=== PATIENT | female | born 1960 | race Caucasian/White ===

== ENCOUNTER 2025-07-16 09:52 | Outpatient (AMB) | payer MEDICARE, MEDICAID, SELFPAY ==
--- NOTE | 2025-07-16 09:55 | MHC.PC.OV ---
Vital Signs 07/16/25 10:06 Height 5 ft 6 in Weight 165 lb 2 oz BMI 26.6 BP 125/78 Blood Pressure Location Lt brachial Position Sitting Respiration 12 Pulse 82 Pulse Source Pulse Oximeter Temp 97.1 F Temp Source Oral Pulse Oximetry (%) 99 Oxygen Delivery Method Room Air Intake Visit Reasons: Hypertension med refill Intake Note: New patient to [facility] Grocery Associate Required: No Allergies ketorolac (From Toradol) Allergy (Severe, Verified 07/16/25 10:02) Anaphylaxis Penicillin Allergy (Unknown, Uncoded 07/16/25 10:02) Hives Medication List - Last Reviewed 07/16/25 by Dennise Lopez MA amlodipine 5 mg PO DAILY clonazepam mg PO clonidine HCl 0.2 mg PO BEDTIME lamotrigine 75 mg PO BEDTIME methadone 15 mg PO DAILY sertraline 200 mg PO QAM Tobacco use date assessed: 07/16/25 Fall risk assessment: No Falls in past year Last assessed Fall Risk: 07/16/25 Dental Screening Dental Screen Date: 07/16/25 Did you have a dental visit in the last 12 months?: Yes Did you have a dental problem in the last 6 months where you did not have access to dental care?: No Was dental information given to patient?: Patient has dentist HPI HPI Comments History of Present Illness Details 65 y/o F with HTN, current smoker, HLD, hx of anemia, OAB, 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 Declined further treatment for OAB GI [facility] Breast Specialists no longer ff'd Psych Previous PCP [facility], records rec'd and reviewed History of Present Illness - The patient is a 65-year-old female presenting to [facility]. - Hypertension managed with amlodipine. - Mood Disorder controlled with long-term medication regimen., managed by outside prescriber - History of opioid use disorder with methadone treatment. Plan to taper off. - Hyperlipidemia: Previous low HDL; not on meds; family hx of CVA. Would start statin. - Prediabetes: Close to diabetic range, under observation. - Past gastrointestinal surgeries and procedures: gallbladder removal, ERCP. Has chronis LLQ and chronic const. Would like to see [facility] GI for ongoing care. - Overactive bladder history: Past medication was ineffective. Does not want to follow up at this time. - Osteopenia: Calcium and vitamin D supplementation. DEXA 2023 [facility] - Current smoker, interested in lung cancer screening. Has never had this done. - Atypical ductal hyperplasia, L breast s/p lumpectomy - reports doesnt need to fu with breast surgery any more. Review of Systems - Gastrointestinal: Reports history of gallbladder surgery and colonoscopy. - Genitourinary: Denies current urologic symptoms; reports overactive bladder history. - Musculoskeletal: Reports osteopenia; taking supplements. - Psychiatry: Reports mood disorder; uses sertraline, clonazepam, lamotrigine. - Respiratory: Reports smoking history; smoker currently, interested in lung cancer screening. - Allergies: Reports allergies to ketorolac and penicillin. - General: Reports family history of strokes. - No current symptoms self-reported in other systems. Physical Exam General: Well developed, well nourished, in no acute distress. Appears stated age. Head: Normocephalic, atraumatic. Eyes: Pupils are equal, round and reactive to light and accommodation. Conjunctivae are clear. Vision grossly normal. Lungs: Clear to auscultation bilaterally. No rales, rhonchi or wheeze noted. Good air flow in all flower. Heart: Regular rate and rhythm. No murmurs, click, rubs or gallops are noted.. Musculoskeletal: Joints are nontender, without swelling, redness, or effusions. Pulses: Peripheral pulses are equal and palpable bilaterally. Extremities: No clubbing, cyanosis nor edema is noted. Psych: Mood and affect appropriate. Mood disorder noted, maintained on sertraline, clonazepam, and lamotrigine. Results Pending Discussion Notes I discussed with the patient her current medical conditions including hypertension, mood disorder, opioid dependence, and prediabetes, emphasizing the importance of monitoring and management. I outlined the significance of regular lipid profile checks and discussed the recent findings of hyperlipidemia with her. The patient expressed interest in a referral to a claims associate due to historical gastroenterological procedures and surgery. We reviewed the possibility of lung cancer screening due to her smoking history, and I explained the nature and benefits of low-dose CT scans for this screening. We talked about the ineffectiveness of past medication for overactive bladder and agreed to monitor symptoms. The patient also inquired about a recent breast evaluation, and I advised follow-up with a breast specialist, she declined but will get her mammo @ [facility]. Preventative measures, including an upcoming wellness visit, were emphasized, and the importance of maintaining bone density health with calcium and vitamin D was reinforced. I advised staying vigilant for any changes in her condition and discussed protocols for contacting the clinic and accessing healthcare services. Patient was given time to ask questions. All questions were answered to their satisfaction. Assessment and Plan 1. Hypertension - Continue Amlodipine 5 mg at local pharmacy. Refill sent today 2. Mood Disorder - Maintain sertraline, clonazepam, lamotrigine. Cont care w outside prescriber 3. Opioid Dependence - Continue methadone program as managed by outside prescriber 4. Hyperlipidemia - Dietary changes advised, lipid panel biannually. 5. Prediabetes - Monitor glucose, recommend lifestyle changes. 6. Gastrointestinal Referral - Referral to [facility] gastroenterology. 7. Overactive Bladder - Monitor, consider urology referral if needed. 8. Osteopenia - Continue supplements, bone density scan 2025. Tdap today. Patient Instructions - Continue taking Amlodipine 5 mg daily. - Take sertraline, clonazepam, and lamotrigine as prescribed. - Follow dietary advice to manage cholesterol and glucose levels. - Schedule and attend referred gastroenterology appointment. - Monitor any urinary changes and inform the clinic as needed. - Stay updated with routine wellness checks, scheduled for September. - Take calcium and vitamin D as recommended. - Stop at the lab and complete your blood work today. - RTO Nov for AWV sooner as needed. Consent Patient was informed and verbally consented to the use of an ambient scribe for clinic note documentation during this visit. Total time spent caring for the patient today was 45 minutes. This includes time spent before the visit reviewing the chart, time spent during the visit, and time spent after the visit on documentation, reviewing laboratory results, diagnostic imaging, medications, performing a medically necessary evaluation, counseling on diagnoses, care coordination, ordering appropriate tests, ordering appropriate medications, review of tests performed by other providers, reporting test results with the patient, communication with other healthcare providers. [facility] Medical History (Updated 07/16/25 @ 10:52 by Marycruz Kirk [facility]) Anxiety and depression Arthritis Drug addiction Hepatic cirrhosis History of ectopic HTN (hypertension) Hx of mammogram (~2023) Liver disease Migraines Surgical History (Updated 07/16/25 @ 10:48 by Marycruz Kirk [facility]) H/O rotator cuff surgery H/O shoulder surgery History of ERCP Hx of cholecystectomy Hx of colonoscopy (~2020) Family History (Updated 07/16/25 @ 10:16 by Dennise Lopez MA) Father Substance abuse HTN (hypertension) Diabetes Cardiovascular disease Mother HTN (hypertension) Lung cancer Maternal Grandmother HTN (hypertension) High cholesterol Social History (Updated 07/16/25 @ 10:05 by Dennise Lopez MA) Household Members: None Both parents involved: No Caregiver staying overnight: No Housing: Apartment Are you a primary disabilities caregiver to a significant other at home: No Do you presently have visiting nurse or other home services: No 75 years or older and lives alone: No Alcohol intake: never Patient Tobacco Use Status: Never used Tobacco e-Cigarette/Vaping Use: Never Used Second Hand Smoke Exposure: No service: No Current occupational status: retired Cognitive needs: No Hearing needs: No Vision needs: No Questionnaire PHQ-9 Over the last 2 weeks, how often have you been bothered by any of the following problems? 1. Little interest or pleasure in doing things: several days 2. Feeling down, depressed, or hopeless: several days 3. Trouble falling or staying asleep, or sleeping too much: several days 4. Feeling tired or having little energy: several days 5. Poor appetite or overeating: several days 6. Feeling bad about yourself - or that you are a failure or have let yourself or your family down: several days 7. Trouble concentrating on things, such as reading the newspaper or watching television: several days 8. Moving or speaking so slowly that other people could have noticed. Or the opposite - being so fidgety or restless that you have been moving around a lot more than usual: several days 9. Thoughts that you would be better off or of hurting yourself in some way: not at all Total score: 8 Depression Screening Interpretation: Positive Depression Screening Follow-up: Existing condition and Community Mental Health Worker F/U Depression Screening Done: Yes 78093 - PHQ-9 Billing: Yes Source: Developed by Drs. Dustin Soares, Dyana Arriaga, Gadiel Combs and colleagues, with an educational sterling from [employer]. Thrive Questionnaire Date Thrive assessed: 07/16/25 I am a: Patient What is your living situation today?: I have a steady place to live Within the past 12 months, did the food you bought not last and you didn't have the money to get more?: Sometimes True Within the past 12 months, did you worry whether your food would run out before you got money to buy more?: Sometimes True Do you have trouble paying for medicines?: No Do you have trouble getting transportation to medical appointments?: Yes Do you have trouble paying your heating and electricity bill?: No Do you have trouble taking care of your child, family member or friend?: No Do you have trouble with day-to-day activities such as bathing, preparing meals, shopping, managing finances, etc.?: No Are you currently unemployed and looking for a job?: Yes Are you interested in more education?: No Please select the resources that you would like help with: None Currently or been in a relationship where the following occur: No concerns reported THRIVE Score: 3 AUDIT C Alcohol Use Questionnaire (AUDIT-C) 1. How often do you have a drink containing alcohol?: Never 3. How often do you have six or more drinks on one occasion?: Never Total Score: 0 Score Reviewed/Action Taken: Yes ZE-7 AMB Questionnaire ZE-7 Date ZE - 7 assessed: 07/16/25 Feeling nervous, anxious, or on edge: 1 = Several days Not being able to stop or control worryin = More than half the days Worrying too much about different things: 1 = Several days Trouble relaxin = Several days Being so restless that it is hard to sit still: 1 = Several days Becoming easily annoyed or irritable: 0 = Not at all Feeling afraid as if something awful might happen: 0 = Not at all Total ZE-7 score (0-4 normal; 5-9 mild; 10-14 moderate; 15-21 severe): 6 Source: Developed by Drs. Dustin Soares, Dyana Arriaga, Gadiel Combs and colleagues, with an educational sterling from [employer]. ZE-7 Assessment Billing ZE-7 Assessment Tool: ZE-7 Assessment 69899 Physical exam (Primary Care) Vital Signs: Last Vital Signs Temp 97.1 F 07/16/25 10:06 Pulse 82 07/16/25 10:06 Resp 12 07/16/25 10:06 BP 125/78 07/16/25 10:06 Pulse Ox 99 07/16/25 10:06 Oxygen Delivery Method Room Air 07/16/25 10:06 BMI result Body Mass Index 26.6 Tobacco/Smoking Status: Tobacco use Status Tobacco use date assessed 07/16/25 07/16/25 10:00 Patient Tobacco Use Status Never used Tobacco 07/16/25 10:05 e-Cigarette/Vaping Use Never Used 07/16/25 10:05 Are you ready to quit: No Tobacco cessation counseling provided: Yes Items discussed: Nicotine replacement, QuitWorks and Other Relapse Prevention: discussed the importance of a supportive environment, discussed extending NRT, discussed negative mood or depression after quitting, weight gain after smoking is common and discussed dietary, exercise and/or lifestyle changes Number of minutes spent counselin CPT code: 88193 - 4-10 Minutes PHQ-9: PHQ-9 Score PHQ-9: Total score 8 07/16/25 10:20 Depression Screening Interpretation: Positive Depression Screening Follow-up: Existing condition and Community Mental Health Worker F/U Thrive Assessment: Date of Thrive Assessment Date Thrive assessed 07/16/25 07/16/25 10:00 Currently or been in a relationship where the following occur: No concerns reported Immunizations Boostrix Tdap 2.5 Lf unit-8 mcg-5 Lf/0.5 mL intramuscular syringe Performing Provider: RILEY Dillard Performing Location: [facility] Administered by: Dennise Lopez MA on 07/16/25 10:44 Dose Route Admin Location Dispensed Lot Number Expiration Date [facility] Acid Leveler 0.5 mL IM Left Deltoid 0.5 mL [id number] 08/26/27 75560-452-22 [employer] Total Dispensed Waste 0.5 mL 0 % VIS Given Date VIS Provided VIS Publication Date 07/16/25 Single Vaccine 21 Eligibility Eligibility Date Funding Source Not [facility] Eligible 07/16/25 Private Coding Level of Care Code New Pt Level 4 (23225) Complex EM visit Add On G2211 Diagnoses Encounter to establish care with new provider Z76.89 Current smoker F17.200 History of anemia Z86.2 Overactive bladder N32.81 Long-term current use of methadone for opiate dependence F11.20 Atypical ductal hyperplasia of left breast N60.92 Mood disorder F39 Family history of stroke Z82.3 Chronic constipation K59.09 Chronic LLQ pain R10.32; G89.29 Primary hypertension I10 Hypertension type: primary hypertension Need for Tdap vaccination Z23 Osteopenia, unspecified location M85.80 Osteopenia location: unspecified Mixed hyperlipidemia E78.2 Hyperlipidemia type: mixed hyperlipidemia Additional Codes ZE-7 Assessment Billing - ZE-7 Assessment Tool: ZE-7 Assessment 53426 ([id number]) PHQ-9 - 73095 - PHQ-9 Billing: Yes ([id number]) Vital Signs *Quality* - CPT code: 99666 - 4-10 Minutes ([id number]) Assessment & Plan Assessment & Plan (1) Encounter to establish care with new provider: Code(s): Z76.89 - Persons encountering health services in other specified circumstances (2) Current smoker: Code(s): F17.200 - Nicotine dependence, unspecified, uncomplicated Category: Social Hx (3) History of anemia: Code(s): Z86.2 - Personal history of diseases of the blood and blood-forming organs and certain disorders involving the immune mechanism Category: Medical (4) Overactive bladder: Code(s): N32.81 - Overactive bladder Category: Medical (5) Long-term current use of methadone for opiate dependence: Code(s): F11.20 - Opioid dependence, uncomplicated Category: Medical (6) Atypical ductal hyperplasia of left breast: Code(s): N60.92 - Unspecified benign mammary dysplasia of left breast Category: Medical (7) Mood disorder: Code(s): F39 - Unspecified mood [affective] disorder Category: Medical (8) Family history of stroke: Comment: [facility] Code(s): Z82.3 - Family history of stroke Category: Medical (9) Chronic constipation: Code(s): K59.09 - Other constipation Category: Medical (10) Chronic LLQ pain: Code(s): R10.32 - Left lower quadrant pain; G89.29 - Other chronic pain Category: Medical (11) HTN (hypertension): Code(s): I10 - Essential (primary) hypertension Category: Medical Qualifiers: Hypertension type: primary hypertension Qualified Code(s): I10 - Essential (primary) hypertension (12) Need for Tdap vaccination: Onset Date: ~07/16/25 Code(s): Z23 - Encounter for immunization Category: Medical (13) Osteopenia: Onset Date: ~2023 Code(s): M85.80 - Other specified disorders of bone density and structure, unspecified site Category: Medical Qualifiers: Osteopenia location: unspecified Qualified Code(s): M85.80 - Other specified disorders of bone density and structure, unspecified site (14) HLD (hyperlipidemia): Code(s): E78.5 - Hyperlipidemia, unspecified Category: Medical Qualifiers: Hyperlipidemia type: mixed hyperlipidemia Qualified Code(s): E78.2 - Mixed hyperlipidemia Plan . Orders: Orders Comprehensive Met. Panel Today I10 - Essential (primary) hypertension Lipid Panel Today I10 - Essential (primary) hypertension Microalbumin, Random (w Creat) Today I10 - Essential (primary) hypertension Vitamin D 25-OH Total Today I10 - Essential (primary) hypertension HIV Ab/Ag Today I10 - Essential (primary) hypertension TDaP Immunization Today Z23 - Encounter for immunization Complete Blood Count no Diff Today I10 - Essential (primary) hypertension Hemoglobin A1c Today I10 - Essential (primary) hypertension TSH reflex Free T4 Today I10 - Essential (primary) hypertension Vitamin B12 and Folate Today I10 - Essential (primary) hypertension Hepatitis A,B,C Profile Today I10 - Essential (primary) hypertension Referrals Gastroenterology Referral G89.29 - Other chronic pain, K59.09 - Other constipation, R10.32 - Left lower quadrant pain Lung Cancer Screening Referral F17.200 - Nicotine dependence, unspecified, uncomplicated Medications: New amlodipine 5 mg PO DAILY 90 tabs 2RF Patient Instructions: Walk-In Care (Urgent Care): We Make it Easy Walk-in for urgent medical issues such as: ? Seasonal Allergies ? Insect Bites ? Cough ? Diarrhea ? Acute Asthma Attacks ? Back, Knee or Joint Pain ? Ear Infection ? Fever without a Rash ? Headaches ? Nausea ? [place] Eye, Rash or Skin Irritation ? Sore Throat ? Sports Physicals ? Vomiting Most insurances are accepted. Patients do not need to be part of the [facility] to seek care at the walk-in clinic. Locations [address] [facility] [place] [address] ? [phone] [facility] Walk-In Care in [place] provides services to ages 18 and over. Open Monday-Monday: 7 a.m. to 5 p.m. and Monday: 9 a.m. to 3 p.m.* *Hours may vary due to staffing availability. To confirm Walk-In Care hours in [place], please call [phone]. [address] [place] [id number] ? [phone] [facility] in [place] provides services to ages 12 and over. Open Monday-Monday: 8 a.m. to 5 p.m. Hours may vary due to staffing availability. To confirm Walk-In Care hours in [place], please call [phone]. LABORATORY SERVICES: [facility] ? Primary Location [address] [place] [address] Monday through Monday 6:00 AM ? 5:00 PM Monday 7:00 AM ? 11:00 AM* [phone] The [facility] is centrally located near the front entrance of the Medical Center for easy outpatient access. Convenient parking is provided for outpatients. *Hours may vary due to staffing availability. To confirm Laboratory hours for any location, please call [phone]. Offsite Location For your convenience, we offer offsite laboratory draw stations at the following locations: [address] [place] [address] ? [facility] [address], [address] Monday through Monday 7:30 AM ? 1:00 PM* [phone] *Hours may vary due to staffing availability. To confirm Laboratory hours for any location, please call [phone]. [place] ? [address] Monday through Monday 6:00 AM ? 3:30 PM* Monday 6:30 AM ? 3 PM* [phone] *Hours may vary due to staffing availability. To confirm Laboratory hours for any location, please call [phone]. [address] [facility] Monday through Monday 7:30 AM ? 4:00 PM* [phone] *Hours may vary due to staffing availability. To confirm Laboratory hours for any location, please call [phone] [place] [address] Monday through 9:00 AM ? 4:00 PM* *Hours may vary due to staffing availability. To confirm Laboratory hours for any location, please call [phone]. Appointments are not necessary. Walk-ins are welcome. Like all the departments throughout the [facility], our Lab undergoes frequent reviews to ensure the quality and accuracy of test results, and our staff takes special pride in its status as a nationally accredited facility. Patient Portal: [facility] ONE PATIENT. ONE RECORD. BETTER CARE. [facility] has a fully integrated, cutting-edge mobile electronic health information system that has revolutionized the way we care for our patients and manage our organization. This system improves communication and coordination enabling us to provide safe, higher-quality care, and an overall positive experience for staff and patients. Our first priority, as always, is to deliver the highest quality care possible. The system is running in the background supporting that priority. This portal is for all [facility] services and practices. If you are experiencing any technical difficulties with enrolling or logging into the Patient Portal please complete the [facility] Patient Portal Technical Support Form. [facility] now offers a new secure on-line interactive tool for patients to review their health information ? ?Patient Portal. This interactive web portal will enable patients and their families to take an active role in their care by providing easy, secure access to their health information via the internet. The Patient Portal provides patients with instant access to their health information, including laboratory results, medications, allergies, demographic information, visit history, and more. In addition to managing their own care, parents and health care proxies with authorized consent will appreciate the ability to access the records of those individuals for whom they provide care. Please note: if you wish to gain access (Proxy) to another patient?s portal, you will be required to come to the Medical Records Department in person at [facility]. Both the patient giving proxy access and the proxy will need to provide photo identification and complete the appropriate authorization. The Patient Portal also allows track their appointments online. The [facility] Patient Portal also saves patients time by allowing them to submit updates to their demographic and contact information prior to their visits. Portal email notifications will also alert patients to any new activity on their portal, such as test results and new appointments. In order to initially enroll in the [facility] Patient Portal, you will need to enter some required information including the following: your [facility] Medical Record number your personal home email address name date of Please note: In order to enroll in the [facility] Patient Portal, we need to have your email address on file in your electronic medical record. ?The email address needs to be specific for one person (yourself) in order for your Portal enrollment to be successful. ?You can update your email address in person with our Registration staff when you are registering for a hospital visit. ?Otherwise, you will need to come to the Health Information Management (Medical Records) Department at [facility]. ?We are open from Monday ? Monday from 7:30 a.m. ? 4:30 p.m. ?You will be required to present a photo id. Once you have successfully enrolled in the Patient Portal, you will receive a one-time user id and password for the Portal, sent to your email address. ?This will allow you to log into the Patient Portal within 99 hrs and reset your own logon id and password, and define personal security questions. ?Once your permanent login and password have been set, you can log into the [facility] Patient Portal at any time via the blue button above or from the Portal Logon button on any page of the [facility] website. [facility] and [facility] encourage all of our patients to enroll in Patient Portal as it presents a valuable opportunity for patients and their families to actively participate in their care and stay healthy Welcome to [facility]. ?We look forward to working with you. 65-year-old female here today
[2025-07-16 10:06] VITALS: BP 125/78; PULSE 82; RESP 12; TEMP 36.2; O2SAT 99; BMI 26.6
== END 2025-07-16 10:47 | disposition home or self-care (01) ==
LOC: HO.HMCFM 09:53
PROVIDERS: PCP Nurse Practitioner Family; Visit Provider Nurse Practitioner Family
DX: N32.81 Overactive bladder (principal); F11.20 Opioid dependence, uncomplicated; F17.200 Nicotine dependence, unspecified, uncomplicated; Z86.2 Personal history of diseases of the blood and blood-forming organs and certain disorders involving the immune mechanism; N60.92 Unspecified benign mammary dysplasia of left breast; F39 Unspecified mood [affective] disorder; Z82.3 Family history of stroke; K59.09 Other constipation; R10.32 Left lower quadrant pain; G89.29 Other chronic pain; I10 Essential (primary) hypertension; Z23 Encounter for immunization

== ENCOUNTER 2025-07-16 09:52 | Outpatient (REF) | payer MEDICARE, MEDICAID, SELFPAY ==
[2025-07-16 14:37] LABS: Hematocrit 41.2 % (37.0-47.0); Hemoglobin 14.0 g/dl (12.0-16.0); Mean Corpuscular HGB Conc 34.0 g/dl (31.0-35.0); Mean Corpuscular Hemoglobin 29.5 pg (27.0-33.0); Mean Corpuscular Volume 86.7 fL (80.0-98.0); NRBC Abs Auto 0.000 X10*3/uL (0.0-0.012); NRBC Pct Auto 0.0 /100WBC (0.0-0.2); Platelet Count 295 X10*3/uL (160-400); Red Blood Count 4.75 X10*6/uL (4.20-5.50); White Blood Count 6.6 X10*3/uL (4.8-10.8)
[2025-07-16 15:20] LABS: Alanine Aminotransferase 17 U/L (0-31); Albumin Level 4.7 g/dL (3.5-5.0); Alkaline Phosphatase 90 U/L (39-117); Anion Gap 14 (12-20); Aspartate Amino Transferase 25 U/L (5-31); Blood Urea Nitrogen 12 mg/dL (9-16); Calcium 9.3 mg/dL (8.4-10.2); Carbon Dioxide 26 mmol/L (22-29); Chloride 106 mmol/L (96-108); Cholesterol 248 mg/dL (<200); Estimated Glomerular Filt Rate > 60; HDL Cholesterol 48 mg/dL (>40); Potassium 4.1 mmol/L (3.3-5.1); Sodium 142 mmol/L (135-145); Total Protein 7.5 g/dL (6.5-8.0); Triglycerides 165 mg/dL (<150)
[2025-07-16 15:30] LABS: Microalbum/Creatinine Ratio Ur 6.6 ug/mg cr (<30)
[2025-07-16 15:43] LABS: Folate 13.6 ng/mL (> or = 4.0); Vitamin B12 609 pg/mL (200-900)
[2025-07-17 08:15] LABS: HBS Num1 0.84 mIU/mL (0-7.99); HBc Num1 0.05 S/CO (0.00-0.79); HBsAGNum1 0.47 S/CO (0.00-0.99); HIV Num 1 0.04 S/CO (0.00-0.99); Hepatitis A Antibody IgM 0.18 Index (0-0.79); Hepatitis B Surface Antigen Negative (Negative); ~Hepatitis A Antibody IgM Nonreactive (Nonreactive); ~Hepatitis B Surface Antibody NONREACTIVE (Nonreactive)
[2025-07-17 08:58] LABS: ~HepC Num1 14.33 S/CO (0.00-0.79); ~Hepatitis C Antibody Reactive (Nonreactive)
== END 2025-07-16 09:53 | disposition home or self-care (01) ==
LOC: HO.WFDLDS 09:52
PROVIDERS: PCP Nurse Practitioner Family; Visit Provider Nurse Practitioner Family
DX: Z23 Encounter for immunization (principal); Z76.89 Persons encountering health services in other specified circumstances; I10 Essential (primary) hypertension; N32.81 Overactive bladder; N60.92 Unspecified benign mammary dysplasia of left breast; F39 Unspecified mood [affective] disorder; K59.09 Other constipation; R10.32 Left lower quadrant pain; G89.29 Other chronic pain; M85.80 Other specified disorders of bone density and structure, unspecified site; E78.2 Mixed hyperlipidemia; F11.20 Opioid dependence, uncomplicated; F17.200 Nicotine dependence, unspecified, uncomplicated; Z82.3 Family history of stroke; Z79.899 Other long term (current) drug therapy; Z86.2 Personal history of diseases of the blood and blood-forming organs and certain disorders involving the immune mechanism
CPT/HCPCS: 36415; 80053; 80061; 82043; 82306; 82570; 82607; 82746; 83036; 84443; 85027; 86704; 86706; 86709; 86803; 87340; 87389; 90471; 90715; 96127; 99202

== ENCOUNTER 2025-10-27 09:02 | Outpatient (REF) | payer MEDICARE, MEDICAID, SELFPAY ==
[2025-10-27 16:21] LABS: Cholesterol 139 mg/dL (<200); HDL Cholesterol 46 mg/dL (>40); Triglycerides 86 mg/dL (<150)
== END 2025-10-27 09:03 | disposition home or self-care (01) ==
LOC: HO.WFDLDS 09:02
PROVIDERS: PCP Nurse Practitioner Family; Visit Provider Nurse Practitioner Family
DX: Z00.00 Encounter for general adult medical examination without abnormal findings (principal); I10 Essential (primary) hypertension; F17.210 Nicotine dependence, cigarettes, uncomplicated; H53.8 Other visual disturbances; Z78.9 Other specified health status; E78.2 Mixed hyperlipidemia; Z28.21 Immunization not carried out because of patient refusal; H61.22 Impacted cerumen, left ear; Z71.89 Other specified counseling; Z79.899 Other long term (current) drug therapy
CPT/HCPCS: 36415; 69209; 80061; 96127; 99497; G0404

== ENCOUNTER 2025-10-27 09:02 | Outpatient (AMB) | payer MEDICARE, MEDICAID, SELFPAY ==
--- NOTE | 2025-10-27 09:07 | AM.OFFVISMDC ---
Intake Vital Signs 10/27/25 09:13 Height 5 ft 6 in Weight 165 lb 2 oz BMI 26.6 BP 122/68 Blood Pressure Location Lt brachial Position Sitting Respiration 12 Pulse 99 Pulse Source Pulse Oximeter Temp 97.6 F Temp Source Oral Pulse Oximetry (%) 98 Oxygen Delivery Method Room Air Intake Visit Reasons: AWV 30 min Intake Note: AWV. 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- amlodipine 5 mg PO DAILY atorvastatin (Lipitor) 20 mg PO BEDTIME clonazepam mg PO clonidine HCl 0.2 mg PO BEDTIME lamotrigine 75 mg PO BEDTIME methadone 11 mg PO DAILY sertraline 200 mg PO QAM Do you need a note to return to daycare/school/sports/work: No HPI HPI Comments History of Present Illness Details Here today for AWV. The Medicare Annual Wellness Visit (AWV) is a yearly appointment with a health professional to identify health risks and help reduce them and to create or update a personalized prevention plan. During a Medicare AWV, health professionals should also review any current opioid prescriptions, detect any cognitive impairment, and establish or update medical and family history. 65 y/o F with HTN, current smoker, HLD, hx of anemia, OAB, chronic constipation, meterman use of methadone for opiate dependence, Atypical ductal hyperplasia L breast, mood disorder, osteopenia, Hep C AB + , Fhx lung ca(mom) s/p ERCP, lap jessica, lumpectomy L breast, L shoulder replacement Fhx: Mom lung ca, htn; Dad HTN, DM2, CHF, FL; MGM stroke, DM; SocHx: 2 dtrs 43 and 40; Dtr Betty with MAC; Mom lung ca; Dad hepatitis complications, had [place]; No siblings; of OD. Health Maintenance: See scanned preventative medicine assessment with personalized health plan and screening schedule. Lung Ca Screening: referred to [facility] appt in Nov 2025 Colon: 2020 Mammo: due, she will get @ [facility] DEXA DEXA 2023, osteopenia PAP aged out Vaccines: Tdap 07/2025, Flu 2024, Shingles declined, Pneumococcal AAA screen: screened out EKG: done today, NSR No QT prolongation Labs 07/16/25 A1c 5.6%, LDL 167 Specialist Uro no longer ff'd - no interest. Declined further treatment for OAB GI [facility] no longer ff'd Psych Optho wears glasses Visual Acuity: wears glasses, last exam 2005, referred today to [facility] Hearing Screening: no concerns ACP: Dietary/Nutrition/Exercise Edu provided: Y During the course of the visit the patient was educated and counseled about appropriate screening and preventative services. Patient instructions were provided to the patient in written or electronic format. I have reviewed and verified the above information. History of Present Illness The patient is a 65 year old female presenting for an annual medicare wellness visit. Health Maintenance: - The patient received her flu shot this year but declined the shingles vaccine. - She has a history of receiving one pneumococcal vaccine but cannot recall when. - Her last Tdap vaccine was in 2024 - The patient needs to schedule a mammogram which she plans to do. - Her last colonoscopy was in 2020 with a 10-year recall. - She has an appointment for lung cancer screening in November. - Her last eye exam was in approximately 2005. Opioid use disorder: - The patient is tapering off methadone and is currently taking 11 mg, down from 15 mg. - She paused the taper for the holidays and plans to resume next month. - The methadone has caused long-term constipation, for which she is seeing a director of program management. Chronic medical conditions: - The patient takes amlodipine, atorvastatin, and clonidine for management of hypertension and hyperlipidemia. - She reports that her blood pressure is excellent. - She also takes lamotrigine, sertraline, and clonazepam. Subjective cognitive decline: - The patient reports her memory is getting wonky with occasional word-finding difficulties, which she attributes to age and past drug use. Past Medical History - Hypertension - Hyperlipidemia - Opioid use disorder, on methadone maintenance - Probable mood/anxiety disorder - History of pertussis in 2015 - History of severe influenza in 1991 - History of significant substance use (marijuana and other drugs) when younger - Hospitalization for a noh-DAAUG-duxrymx issue during the pandemic Family History - Mother: from lung cancer. - Father: . He had a history of heart disease with multiple heart attacks and from complications of pneumonia after lauri hepatitis. - Stroke: Reports a family history of stroke. - Siblings: The patient has no siblings. - Children: The patient has two daughters, ages 43 and 40. - One daughter is currently receiving IV antibiotic infusions for a MAC infection. Social History - Marital Status: The patient is a ; her at age 50 from a suspected overdose, complicated by underlying cardiac issues. - Children: She has two daughters, aged 43 and 40. - Substance Use: She is currently on a methadone taper. - She reports a history of using marijuana and other drugs when she was younger. - Advanced Directives: Her daughter is listed as her healthcare proxy. - She expressed her end-of-life wishes, stating she does not want to be kept alive on machines long-term, but would agree to a short-term trial if there is brain function. - She plans to establish a DNR order upon turning 70. Health Maintenance - Immunizations: The patient has received the current season's influenza vaccine. - She has declined the shingles vaccine. - Her pneumococcal vaccine history is incomplete, and she was advised to receive PCV20 or PCV21. - She received a Tdap vaccine in 2024 - Screenings: The patient is due for a mammogram and intends to schedule it. - Her last colonoscopy was in 2020 and was normal; she is due for a repeat in 10 years. - An EKG was normal, QT interval monitoring due to methadone use. - She is enrolled in the lung cancer screening program and has an appointment in November. - Her last eye exam was in 2005; a referral will be placed for a new exam. - Advanced Care Planning: The patient was provided with forms for a healthcare proxy and a living will to document her wishes for end-of-life care. Review of Systems - Constitutional: Denies night sweats or weight loss. - HEENT: Reports occasional positional dizziness. - She wears glasses for watching TV and reading. - She reports a dry mouth. - She denies any hearing problems. - Respiratory: Denies cough. - Gastrointestinal: Reports chronic constipation. - Integumentary: Reports dry, itchy skin. - Neurological: Reports subjective memory issues with occasional word-finding difficulty. Physical Exam General: Well developed, well nourished, in no acute distress. Appears stated age. Head: Normocephalic, atraumatic. Eyes: Pupils are equal, round and reactive to light and accommodation. Conjunctivae are clear. Scleras nonicteric bilat. Vision grossly normal. Ears: TMs clear AU, EACS WNL. Left ear needs to be squashed. Nose: Patent, without discharge. Mouth: There are no ulcers or lesions noted. No inflammation, no post nasal drip, no plaques nor exudates. Neck: No carotid bruit bilat. Supple, no adenopathy or thyromegaly. Breast: Edu on SBE Lungs: Clear to auscultation bilaterally. No rales, rhonchi or wheeze noted. Good air flow in all flower. Heart: Regular rate and rhythm. No murmurs, click, rubs or gallops are noted. Abdomen: Bowel sounds present in all quadrants. The abdomen is soft, mildly tender generally speaking w/o rebound or gaurding, with no masses or organomegaly noted. No hernias are noted. A little tender in the belly. : Deferred. Reviewed recommendations for routine AUTOMATIC DEVELOPER Pulses: Peripheral pulses are equal and palpable bilaterally. Extremities: No clubbing, cyanosis nor edema is noted. Neurologic: Gait and station normal. Cranial Nerves 2-12 intact. Motor strength grossly symmetrical and intact. No sensory loss. Balance normal. Skin: No rashes, ulcers, or lesions noted. Turgor is good. Skin color is good. Hair and nails are without abnormalities. Skin is dry. Psych: Normal eye contact, affect and mood appropriate, and normal interactions. Patient is alert and appropriate to context. Memory is starting to get kind of wonky, but patient can recall information and perform cognitive tasks. Results Labs 07/16/25 reviewed. Medical Decision Making The patient is a 65-year-old female here for her annual wellness visit with a focus on chronic disease management and preventative care. Her hypertension and hyperlipidemia appear stable on her current medication regimen, which includes amlodipine, atorvastatin, and clonidine. She is managing a self-directed taper of methadone, currently at 11 mg, and the primary side effect of constipation is being managed by a director of program management. An EKG will be performed today as a general screening and specifically to monitor for QT prolongation, a potential side effect of methadone. Due to her history of nicotine use, she is appropriately scheduled for an annual low-dose CT lung cancer screening. We reviewed other preventative screenings, and she will be scheduling her mammogram and a referral was placed for a long-overdue eye exam. Her immunization status was reviewed, with recommendations provided for the pneumococcal vaccine. Subjective memory concerns were briefly screened and showed no gross deficits, so no further immediate workup is needed. A significant portion of the visit was dedicated to a detailed discussion about advanced care planning; the patient was provided with the necessary forms to formally document her clear end-of-life wishes. Her cerumen impaction will be addressed today, and she will have labs drawn to monitor her cholesterol. Follow-up is scheduled in six months to review labs and continue ongoing management. Plan 1. Annual Wellness Visit / Health Maintenance - Perform EKG today for screening and to monitor QT interval due to methadone use. - Patient to schedule an overdue mammogram. - A referral will be placed for an eye exam. - Advised patient to obtain PCV20 or PCV21 vaccine at a pharmacy. - Continue with scheduled low-dose CT for lung cancer screening in November. - Order labs for today and for 6 months to include a lipid panel. 2. Advanced Care Planning - Provided patient with a blank healthcare proxy form and a MOLST/living will form. - Patient will complete the forms at home and bring them to the next appointment to be co-signed. 3. Hyperlipidemia - Continue current medications, - Monitor with a lipid panel today and in 6 months. 4. Essential (Primary) Hypertension - Continue amlodipine and clonidine as prescribed. - Patient reports good blood pressure control at home. 5. Opioid Use Disorder, In Early Remission, On Agonist Therapy - Continue patient-led taper of methadone, currently at 11 mg daily. 6. Drug-Induced Constipation - Patient to continue follow-up with her director of program management, with an appointment scheduled for next month. 7. Anxiety Disorder - Continue current psychiatric medications including sertraline, lamotrigine, and clonazepam. 8. Cerumen Impaction, Left Ear - Plan for ear lavage of the left ear during today's visit. - Not successful, debrox and RTO next week 9. Follow-Up - Schedule a follow-up appointment in 6 months to review lab results and continue chronic disease management. Patient Instructions - Before you leave today, a nurse will perform an EKG (a tracing of your heart) and will clean the wax out of your left ear. - Go to the lab for blood work after your appointment. - Please stop at the front desk coordinator to make a follow-up appointment for six months from now. - Continue to take all of your current medications as prescribed. - Please call to schedule your mammogram. - We have sent a referral for you to get an eye exam. - You can ask your pharmacy about getting the PCV20 or PCV21 pneumonia vaccine. - Please fill out the healthcare directive forms we gave you and bring them with you to your next visit. Consent Patient was informed and verbally consented to the use of an ambient scribe for clinic note documentation during this visit. [facility] Medical History (Updated 10/27/25 @ 10:31 by Marycruz Kirk, [facility]) Anxiety and depression Arthritis Hepatic cirrhosis Hepatitis C antibody positive (~07/17/25) History of ectopic HLD (hyperlipidemia) HTN (hypertension) Hx of mammogram (~2023) Liver disease Long-term current use of methadone for opiate dependence Migraines Nicotine dependence, cigarettes, uncomplicated Osteopenia (~2023) Surgical History (Updated 09/01/25 @ 12:54 by Tammy Tran PA-C) H/O rotator cuff surgery History of cholecystectomy History of ERCP (~2020) History of left shoulder replacement (~2021) History of lumpectomy of left breast Hx of colonoscopy (~2020) Family History (Updated 07/16/25 @ 10:16 by Dennise Lopez MA) Father Substance abuse HTN (hypertension) Diabetes Cardiovascular disease Mother HTN (hypertension) Lung cancer Maternal Grandmother HTN (hypertension) High cholesterol Social History (Updated 07/16/25 @ 10:05 by Dennise Lopez MA) Household Members: None Both parents involved: No Caregiver staying overnight: No Housing: Apartment Are you a primary long term care social worker to a significant other at home: No Do you presently have visiting nurse or other home services: No 75 years or older and lives alone: No Alcohol intake: never Patient Tobacco Use Status: Never used Tobacco e-Cigarette/Vaping Use: Never Used Second Hand Smoke Exposure: No service: No Current occupational status: retired Cognitive needs: No Hearing needs: No Vision needs: No Questionnaire Medicare Wellness Checkup What [age] your [age]?: 65-69 What gender do you identify with?: female During the past 4 weeks, how much have you been bothered by emotional problems such as feeling anxious, depressed, irritable, sad or downhearted, and blue?: moderately During the past 4 weeks, has your physical & emotional health limited your social activities with family, friends, neighbors, or groups?: moderately During the past 4 weeks, how much bodily pain have you generally had?: moderate pain During the past 4 weeks, was someone available to help you if you needed & wanted help?: yes, as much as I wanted During the past 4 weeks, what was the hardest physical activity you could do for at least 2 minutes?: moderate Can you get to places out of walking distance without help? (For eg., can you travel alone on buses, taxis or drive your car?): Yes Can you go shopping for groceries or clothes without someone's help?: Yes Can you prepare your own meals?: Yes Can you do your housework without help?: Yes Because of any health problems, do you need the help of another person with your personal care needs such as eating, bathing, dressing or getting around the house?: No Can you handle your own money without help?: Yes During the past 4 weeks, how would you rate your health in general?: fair During the past 4 weeks how have things been going for you?: good & bad parts about equal Are you having difficulties driving your car?: no Do you always fasten your seat belt when you are in a car?: yes, usually During past 4 weeks, have you been bothered by the following: never: Sexual problems?, Teeth or denture problems? and Problems using the telephone?, seldom: Falling or dizzy when standing up and sometimes: Trouble eating well? and Tiredness or fatigue? Have you fallen 2 or more times in the past year?: No Are you afraid of falling?: No Are you a smoker?: yes, but I'm not ready to quit During the past 4 weeks, how many drinks of wine, beer, or other alcoholic beverages did you have?: no alcohol at all Do you exercise for about 20 minutes 3 or more times a week?: yes, most of the time Have you been given information to help with the following?: no: Hazards in your house that might hurt you? and no: Keeping track of your medications? How often do you have trouble taking medicines the way you have been told to take them?: I always take medicine as prescribed How confident are you that you can control & manage most of your health problems?: very confident What is your race?: White Activity of Daily Living Bathing - sponge bath, tub bath or shower: receives no assistance (gets in/out by self, if usual bathing means Dressing - getting clothes from closets & drawers, including inner/outer garments & fasteners.: gets clothes & gets completely dressed without help Toileting - going to the 'toilet room' for urine/bowel elimination & cleaning self/arranging clothes: goes to toilet room, cleans self, arranges clothes without help Transfer: moves in & out of bed and chair without help (may use support object) Continence: controls urination/bowel movements completely by self Feeding: feeds self without help Total Score: 0 Information obtained from: patient Using telephone: independent Traveling: independent Shopping: independent Preparing meals: independent Housework: independent Taking medicine: independent Managing money: independent PHQ-9 Over the last 2 weeks, how often have you been bothered by any of the following problems? 1. Little interest or pleasure in doing things: not at all 2. Feeling down, depressed, or hopeless: not at all 3. Trouble falling or staying asleep, or sleeping too much: not at all 4. Feeling tired or having little energy: not at all 5. Poor appetite or overeating: not at all 6. Feeling bad about yourself - or that you are a failure or have let yourself or your family down: not at all 7. Trouble concentrating on things, such as reading the newspaper or watching television: not at all 8. Moving or speaking so slowly that other people could have noticed. Or the opposite - being so fidgety or restless that you have been moving around a lot more than usual: not at all 9. Thoughts that you would be better off or of hurting yourself in some way: not at all Total score: 0 Depression Screening Interpretation: Negative Depression Screening Done: Yes 50750 - PHQ-9 Billing: Yes Source: Developed by Drs. Dustin Soares, Dyana Arriaga, Gadiel Combs and colleagues, with an educational sterling from [employer]. Physical Exam Vital Signs: Last Vital Signs Temp 97.6 F 10/27/25 09:13 Pulse 99 10/27/25 09:13 Resp 12 10/27/25 09:13 BP 122/68 10/27/25 09:13 Pulse Ox 98 10/27/25 09:13 Oxygen Delivery Method Room Air 10/27/25 09:13 BMI result Body Mass Index 26.6 Office Procedures Cerumen Removal From which ear canal was the cerumen removed: left Removal: irrigation Notes: patient tolerated procedure well (unable to lavage d/t dryness, will have her use debrox and return next week to lavage ) 47029-[id number] Irrigation/Lavage EKG [id number], Complete Vision Screening Right Eye: 20/25 Left Eye: 20/25 Bilateral: 20/25 Color: Pass Corrected: Pass (wearing glasses) 75201 - Vision Screening Assessment & Plan Assessment & Plan (1) Encounter for subsequent annual wellness visit (AWV) in Medicare patient: Onset Date: ~10/27/25 Code(s): Z00.00 - Encounter for general adult medical examination without abnormal findings (2) ACP (advance care planning): Onset Date: ~10/27/25 Code(s): Z71.89 - Other specified counseling (3) Nicotine dependence, cigarettes, uncomplicated: Code(s): F17.210 - Nicotine dependence, cigarettes, uncomplicated (4) Blurred vision: Code(s): H53.8 - Other visual disturbances (5) Physician orders for life-sustaining treatment (POLST) form indicates patient wish for full code resuscitation status: Onset Date: ~10/27/25 Code(s): Z78.9 - Other specified health status (6) HTN (hypertension): Code(s): I10 - Essential (primary) hypertension Qualifiers: Hypertension type: primary hypertension Qualified Code(s): I10 - Essential (primary) hypertension (7) HLD (hyperlipidemia): Code(s): E78.5 - Hyperlipidemia, unspecified Qualifiers: Hyperlipidemia type: mixed hyperlipidemia Qualified Code(s): E78.2 - Mixed hyperlipidemia (8) Hepatitis C antibody positive: Onset Date: ~07/17/25 Code(s): R76.8 - Other specified abnormal immunological findings in serum (9) Impacted cerumen, left ear: Code(s): H61.22 - Impacted cerumen, left ear (10) Herpes zoster vaccination declined: Onset Date: ~10/27/25 Code(s): Z28.21 - Immunization not carried out because of patient refusal Plan . Orders: Orders Lipid Panel 6 Months E78.2 - Mixed hyperlipidemia Lipid Panel Today E78.2 - Mixed hyperlipidemia, I10 - Essential (primary) hypertension Referrals Ophthalmology Referral H53.8 - Other visual disturbances Patient Instructions: Patient Instructions - Before you leave today, a nurse will perform an EKG (a tracing of your heart) and will clean the wax out of your left ear. - Go to the lab for blood work after your appointment. - Please stop at the front desk coordinator to make a follow-up appointment for six months from now. - Continue to take all of your current medications as prescribed. - Please call to schedule your mammogram. - We have sent a referral for you to get an eye exam. - You can ask your pharmacy about getting the PCV20 or PCV21 pneumonia vaccine. - Please fill out the healthcare directive forms we gave you and bring them with you to your next visit Health screenings for women You should visit your health care provider from time to time, even if you are healthy. The purpose of these visits is to: Screen for medical issues Assess your risk for future medical problems Encourage a healthy lifestyle Update vaccinations and other preventive care services Help you get to know your provider in case of an illness Information Even if you feel fine, you should still see your provider for regular checkups. These visits can help you avoid problems in the future. For example, the only way to find out if you have high blood pressure is to have it checked regularly. High blood sugar and high cholesterol levels also may not have any symptoms in the early stages. A simple blood test can check for these conditions. There are specific times when you should see your provider or receive specific health screenings. The [place] Preventive Services Task Force publishes a list of recommended screenings. Below are screening guidelines for women ages 18 to 39. BLOOD PRESSURE SCREENING Your blood pressure should be checked at least once every 3 to 5 years if: Your blood pressure is in the normal range (top number less than 120 mm Hg and bottom number less than 80 mm Hg) You don't have risk factors for high blood pressure Ask your provider if you need your blood pressure checked more often if: The top number is 120 to 129 mm Hg or the bottom number is 70 to 79 mm Hg You have diabetes, heart disease, kidney problems, are overweight, or have certain other health conditions You have a first-degree relative with high blood pressure You are Black You had high blood pressure during a If the top number is 130 mm Hg or greater or the bottom number is 80 mm Hg or greater, this is considered stage 1 hypertension. Schedule an appointment with your provider to learn how you can reduce your blood pressure. Watch for blood pressure screenings in your area. Ask your provider if you can stop in to have your blood pressure checked. BREAST CANCER SCREENING Experts do not agree about the benefits of breast self-exams in finding breast cancer or saving lives. Talk to your provider about what is best for you. A screening mammogram is not recommended for most women under age 40. Your provider may discuss and recommend mammograms, MRI scans, or ultrasounds if you have an increased risk for breast cancer, such as: A mother or sister who had breast cancer at a young age (most often starting screening earlier than the age the close relative was diagnosed) You carry a high-risk genetic marker CERVICAL CANCER SCREENING Cervical cancer screening should start at age 21 years unless your provider advises otherwise. After the first test: Women ages 21 through 29 should have a Pap test every 3 years. Exoprts do not agree on whether HPV testing is recommended for this age group. Women ages 30 through 65 should be screened with either a Pap test every 3 years or the HPV test every 5 years or both tests every 5 years (called cotesting ). Women who have been treated for precancer (cervical dysplasia) should continue to have Pap tests for 20 years after treatment or until age 65, whichever is longer. If you have had your uterus and cervix removed (total hysterectomy), and you have not been diagnosed with cervical cancer or precancer (high grade cervical neoplasia), you do not need cervical cancer screening. CHOLESTEROL SCREENING Cholesterol screening should begin at: Age 45 for women with no known risk factors for coronary heart disease Age 20 for women with known risk factors for coronary heart disease Repeat cholesterol screening should take place: Every 5 years for women with normal cholesterol levels More often if changes occur in lifestyle (including weight gain and diet) More often if you have diabetes, heart disease, kidney problems, or certain other conditions DIABETES SCREENING You should be screened for diabetes starting at age 35 and then repeated every 3 years if you have no risk factors for diabetes. Screening may need to start earlier and be repeated more often if you have other risk factors for diabetes, such as: You have a first degree relative with diabetes. You are overweight or have obesity. You have high blood pressure, prediabetes, or a history of heart disease. Screening for diabetes should be done if you are planning to become and you are overweight and have other risk factors such as high blood pressure. DENTAL EXAM Go to the dentist once or twice every year for an exam and cleaning. Your dentist will evaluate if you need more frequent visits. EYE EXAM Have an eye exam every 5 to 10 years before age 40. If you have vision problems, have an eye exam every 2 years or more often if recommended by your provider. You should have an eye exam that includes an examination of your retina (back of your eye) at least every year if you have diabetes. IMMUNIZATIONS Commonly needed vaccines include: Flu shot: get one every year. COVID-19 vaccine: ask your provider what is best for you. Tetanus-diphtheria and acellular pertussis (Tdap) vaccine: have one at or after age 19 as one of your tetanus-diphtheria vaccines if you did not receive it as an adolescent. Tetanus-diphtheria: have a booster (or Tdap) every 10 years. Varicella vaccine: receive 2 doses if you never had chickenpox or the varicella vaccine. Hepatitis B vaccine: receive 2, 3, or 4 doses, depending on your exact circumstances. Measles, mumps, and rubella (MMR) vaccine: receive 1 to 2 doses if you are not already immune to MMR. Your provider can tell you if you are immune. Ask your provider about the human papillomavirus (HPV) vaccine if: You have not received the HPV vaccine in the past You have not completed the full vaccine series (you should catch up on this shot) Ask your provider if you should receive other immunizations if you have certain health problems that increase your risk for some diseases such as pneumonia. INFECTIOUS DISEASE SCREENING Women who are sexually active should be screened for chlamydia and gonorrhea up until age 25. Women 25 years and older should be screened for chlamydia and gonorrhea if at high risk. Screening for hepatitis C: All adults ages 18 to 79 should get a one-time test for hepatitis C. people should be screened at every . Screening for human immunodeficiency virus (HIV): All people ages 15 to 65 should get a one-time test for HIV. Depending on your lifestyle and medical history, you may also need to be screened for infections such as syphilis and HIV, as well as other infections. PHYSICAL EXAM All adults should visit their provider from time to time, even if they are healthy. The purpose of these visits is to: Screen for disease Assess your risk of future medical problems Encourage a healthy lifestyle Update your vaccinations and other preventive care services Maintain a relationship with a provider in case of an illness Your height, weight, and BMI should be checked at every exam. During your exam, your provider may ask you about: Depression and anxiety Diet and exercise Alcohol and tobacco use Safety issues, such as using seat belts, smoke detectors, and intimate partner violence Your medicines and risk for interactions SKIN SELF-EXAM Your provider may check your skin for signs of skin cancer, especially if you're at high risk, such as if you: Have had skin cancer before Have close relatives with skin cancer Have a weakened immune system OTHER SCREENING Talk with your provider about colon cancer screening if you have a strong family history of colon cancer or polyps, or if you have had inflammatory bowel disease or polyps yourself. Routine bone density screening of women under 40 is not recommended. Quality Reporting (2020) Adult ([facility] 138/12/28/68) Smoking risk assessment performed?: Yes Patient Tobacco Use Status: Never used Tobacco Depression screening performed: Yes Screen Results: Yes Negative screen Systolic BP not done?: No Diastolic BP not done?: No BMI screening not done: No Sexual Activity Screening ([facility] 153) Sexually active?: No Immunizations ([facility] 147, 117) Annual Influenza Vaccine: Yes Measles Antibody Test: No Mumps Antibody Test: No Rubella Antibody Test: No Varicella Antibody Test: No Anti Hepatitis A IgG Antigen test: No Anti Hepatitis B Virus Surface Ab test: No Fall Risk Screening ([facility] 139) Last assessed Fall Risk: 10/27/25 Fall risk assessment: No Falls in past year Dementia Assessment ([facility] 149) Cognitive assessment recorded: Yes Assessment of cognition with standardized tool: Yes Depression/Bipolar (159/160/161/177) PHQ-9: Total score: 0 Ophthalmol:Cataracts Visual Acuity (133) Visual acuity exam performed: Yes (see results) Coding Level of Care Code Medicare First (G0438) Diagnoses Encounter for subsequent annual wellness visit (AWV) in Medicare patient Z00.00 ACP (advance care planning) Z71.89 Nicotine dependence, cigarettes, uncomplicated F17.210 Blurred vision H53.8 Physician orders for life-sustaining treatment (POLST) form indicates patient wish for full code resuscitation status Z78.9 Primary hypertension I10 Hypertension type: primary hypertension Mixed hyperlipidemia E78.2 Hyperlipidemia type: mixed hyperlipidemia Hepatitis C antibody positive R76.8 Impacted cerumen, left ear H61.22 Herpes zoster vaccination declined Z28.21 CPT Codes Advance Care Planning - Time spent: 16-45 minutes ([id number]) Office Procedure - CPT: 77148-Wih Irrigation/Lavage ([id number]) EKG - CPT: 77509-[id number], Complete ([id number]) Vision Screening - Vision Screenin - Vision Screening ([id number]) Additional Codes PHQ-9 - 94871 - PHQ-9 Billing: Yes ([id number]) Advance Care Planning Advance Care Planning discussion: Exists, not on file Date of discussion: 10/27/25 Who was present: self Forms completed: Health Care Proxy, MOLST and Living will Time spent: 16-45 minutes Actual minutes spent: 16
[2025-10-27 09:13] VITALS: BP 122/68; PULSE 99; RESP 12; TEMP 36.4; O2SAT 98; BMI 26.6
== END 2025-10-27 10:19 | disposition home or self-care (01) ==
LOC: HO.HMCFM 09:03
PROVIDERS: PCP Nurse Practitioner Family; Visit Provider Nurse Practitioner Family
DX: Z00.00 Encounter for general adult medical examination without abnormal findings (principal); I10 Essential (primary) hypertension; E78.2 Mixed hyperlipidemia; H61.22 Impacted cerumen, left ear; H53.8 Other visual disturbances; R76.89 Other specified abnormal immunological findings in serum; F17.210 Nicotine dependence, cigarettes, uncomplicated; Z28.21 Immunization not carried out because of patient refusal